=== PATIENT | female | born 1990 | race Caucasian/White ===

== ENCOUNTER 2022-06-29 08:00 | Outpatient (CLI) | payer OTHER | END 2022-06-29 23:52 | disposition home or self-care (01) | LOC: LAB.R 08:00 | PROVIDERS: ATTEND Obstetrics & Gynecology | DX: Z36.85 Encounter for antenatal screening for Streptococcus B (principal) | CPT/HCPCS: 87797 ==

== ENCOUNTER 2022-07-08 16:55 | Outpatient (CLI) | payer OTHER ==
--- NOTE | 2022-07-10 10:52 | Ultrasound Report ---
PROCEDURE: OB F/U or Repeat INDICATIONS: UTERINE SIZE DATE DISCREPANCY OUTSIDE/PRIOR DATING DATA: Last menstrual period (LMP): 10/19/2021. LMP-based estimated date of delivery ([facility]LA): 07/26/2022. First dating scan (date and location): 07/08/2022. Estimated date of delivery ([facility]LA) from first dating scan: 07/26/2010 22. The below data below was generated using the working NYLA of 07/26/2022 TECHNIQUE: Real-time scanning was performed of the fetus, with image documentation and biometric measurements. Endovaginal scanning: Not performed. COMPARISON: None. FINDINGS: General: A single living intrauterine gestation is present. Presentation: Vertex Placenta: Placental position is anterior, without previa. Amniotic fluid index: 18.2 cm; largest pocket 6.5 cm. heart rate: 137 beats per minute. Maternal cervical canal: 3.1 to cm long; normal length is 2.5 cm or more. biometrics: Biparietal diameter: 37 weeks 2 days Head circumference: 36 weeks 1 day Abdominal circumference: 34 weeks 1 day Femur length: 36 weeks 5 days Estimated gestational age from clinical datin weeks 1 day. Composite gestational age from present scan: 35 weeks 1 day Measurement variability in biometric dating: +/- 10 days from 12-20 weeks gestation, +/- 2 weeks from 20-30 weeks gestation, +/- 3 weeks at 30 weeks gestation or more. IMPRESSION: 1. A single living IUP is present. Based on the current ultrasound, the estimated gestational age is 35 weeks 1 day, which is concordant with clinical dating. 2. ARI 18.2 cm. Reviewed by: Hieu Velásquez MD on 07/10/2022 10:51 AM PST Approved by: Hieu Velásquez MD on 07/10/2022 10:51 AM PST Station ID: [id number]
== END 2022-07-08 16:56 | disposition home or self-care (01) ==
LOC: DI 16:55
PROVIDERS: ATTEND Obstetrics & Gynecology
DX: O26.843 Uterine size-date discrepancy, third trimester (principal); Z3A.35 35 weeks gestation of pregnancy

== ENCOUNTER 2022-07-14 16:41 | Inpatient (IN) | payer OTHER ==
[2022-07-14] MEDS ORDERED: TRANEXAMIC ACID IN NACL 1,000 MG/100 ML BAG IV PRN (17:01)
[2022-07-14] MEDS ORDERED: METHYLERGONOVINE 0.2 MG/ML VIAL IM PRN (17:01)
[2022-07-14] MEDS ORDERED: fentaNYL 100 MCG/2 ML VIAL IVP PRN (17:01)
[2022-07-14] MEDS ORDERED: SODIUM CHLORIDE FLUSH 0.9% 10 ML SYRINGE IVP PRN (17:01)
[2022-07-14] MEDS ORDERED: miSOPROStoL 200 MCG TABLET PR PRN (17:01)
[2022-07-14] MEDS ORDERED: OXYTOCIN 10 UNIT/ML VIAL IM PRN (17:01)
[2022-07-14] MEDS ORDERED: miSOPROStoL 200 MCG TABLET BC PRN (17:01)
[2022-07-14] MEDS ORDERED: lidocaine 1% 20 ML MDV ID PRN (17:01)
[2022-07-14] MEDS ORDERED: TERBUTALINE 1 MG/ML VIAL SUBQ PRN (17:01)
[2022-07-14] MEDS ORDERED: CARBOPROST TROMETHAMINE 250 MCG/ML AMP IM PRN (17:01)
--- NOTE | 2022-07-14 18:30 | PROCEDURE REPORT ---
- HPI Diagnosis/Indication for NST: Intrauterine growth restriction Current EDU 07/26/22 Gestation 38 Weeks and 2 Days 1 Para 0 Vital Signs Temperature 98 F 07/14/22 16:55 Heart Rate 86 07/14/22 16:55 Respiratory Rate 18 07/14/22 16:55 Blood Pressure 125/79 07/14/22 16:55 Temperature 98 F 07/14/22 16:55 Heart Rate 86 07/14/22 16:55 Respiratory Rate 18 07/14/22 16:55 Blood Pressure 125/79 07/14/22 16:55 O2 Saturation If not protocol: Oxygen Flow, liters/minute - NST Procedure NST Procedure Start Date 07/14/22 Start Time 16:20 Vibroacoustic Stimulation Used No Patient States Movement Yes EFM: 130s, moderate variability, positive accelerations, occasional variable decelerations Cable: contractions q4m NST reactive - Results and Plan Plan: 32yo at 38.2w with new diagnosis of IUGR today, sent for NST - NST reactive, occasional variables - OB US today <1%, recommended IOL. After lengthy discussion with patient, , and family she is accepting of process for IOL for IUGR now. - See H&P from today
--- NOTE | 2022-07-14 18:34 | HISTORY & PHYSICAL EXAMINATION ---
Admit History - Visit Reason Visit Reason: Other (IOL for IUGR) - : 1 Parity: 0 Care: positive: [facility] Risk/History: positive: Labor induction, Labor augmentation, High risk Smoking Status: Never smoker - Mother's Labs Mother's Blood Type: positive: B Mother's RH: positive: Positive GBS: positive: Group B Step Negative (CFDNA negative) Rubella Status: positive: Immune - Other Maternal History Other Maternal History: Med: Denies Surg: Breast biopsy 2016 Fam: Mother breast cancer, Father hypertension Social: , currently deployed, denies PERCY Meds/Allgy - Allergies Allergies/Adverse Reactions: Allergies Allergy/AdvReac Type Severity Reaction Status Date / Time No Known Drug Allergies Allergy Verified 07/14/22 18:34 Review of Systems - All Other Systems All Other Systems: reports: Reviewed and negative Physical - Abdominal Exam Vital Signs: Temp Pulse Resp BP Pulse Ox O2 Flow Rate 98 F 86 18 125/79 07/14/22 16:55 07/14/22 16:55 07/14/22 16:55 07/14/22 16:55 Contraction Frequency (min/apart): 4 Contraction Intensity: positive: Mild Uterine Resting Tone: positive: Soft - Monitoring Heart Rate Baseline: 130 Strip Review: positive: Category I - Presentation Presentation: positive: Vertex - Vaginal Exam Membranes: positive: Membranes intact (2210g EFW, cephalic, placenta anterior) Dilation (in cm): 0 Effacement (%): 50 Station: positive: -3 Cervical Position: positive: Midposition - Speculum Exam Speculum Exam Performed: positive: No Plan for Labor - Plan For Labor I expect patient to be DC'd or transferred within 96 hours.: Yes Plan for Labor: 32yo at 38.2w by LMP consistent with 9w US admitted for IOL for IUGR confirmed today. - Repeat US performed today as a follow up for dopplers from verbal report of about 3% EFW on 07/08 US. Today US shows EFW 2213g or 0.6%, abdominal circumference <0,5%, asymmetric growth restriction. Elevated S/D on cord doppler US. She was brought to the office from US to discuss IOL. She was then brought to [facility] for NST and continued discussion via telephone with her and mother in law. currently deployed. All questions answered and informed consent obtained for IOL. - uncomplicated. Weight gain 50lbs. - CBC, CMP, T&S, PCR, CMV. - Admit - Plan for misoprostol 50mcg q4, then Pitocin - Cat 1 tracing now, continue to monitor - Notify pediatrics, consult at time of delivery - Send placenta, call lab in am to order toxoplasmosis labs
[2022-07-14 19:26] LABS: CREATININE,URINE 14.6 mg/dL
[2022-07-14 19:34] LABS: TOTAL PROTEIN,URINE TIMED < 6 mg/dL
[2022-07-14 20:22] LABS: BASOPHILS % (AUTO) 0.3 %; EOSINOPHILS # (AUTO) 0.2 10^3/uL (0.0-0.7); EOSINOPHILS % (AUTO) 1.4 %; HCT - HEMATOCRIT 38.6 % (37.0-47.0); HGB - HEMOGLOBIN 12.8 g/dL (12.0-16.0); MEAN CORPUSCULAR HEMOGLOBIN 29.2 pg (27.0-31.0); MEAN CORPUSCULAR HGB CONC 33.2 g/dL (32.0-36.0); MEAN CORPUSCULAR VOLUME 87.9 fL (81.0-99.0); MEAN PLATELET VOLUME 11.6 fL (7.9-10.8); MONOCYTES # (AUTO) 0.5 10^3/uL (0.0-1.0); MONOCYTES % (AUTO) 4.4 %; NEUTROPHILS # (AUTO) 7.7 10^3/uL (1.5-6.6); NEUTROPHILS % (AUTO) 74.1 %; PLT - PLATELET COUNT 188 10^3/uL (130-450); RED BLOOD COUNT 4.39 10^6/uL (4.20-5.40); RED CELL DISTRIBUTION WIDTH 12.5 % (12.0-15.0); WHITE BLOOD COUNT 10.5 x10^3/uL (4.8-10.8)
[2022-07-14 20:39] LABS: ALBUMIN 3.4 g/dL (3.2-5.5); ALBUMIN/GLOBULIN RATIO 0.8 (1.0-2.2); BILIRUBIN,TOTAL 0.5 mg/dL (0.2-1.0); CALCIUM 9.6 mg/dL (8.5-10.3); CREATININE 0.5 mg/dL (0.4-1.0); POTASSIUM 3.6 mmol/L (3.5-5.0); TOTAL PROTEIN 7.7 g/dL (6.7-8.2)
[2022-07-14] MEDS: PRENATAL VITAMIN TABLET PO SCH (21:49)
[2022-07-14] MEDS: miSOPROStoL 100 MCG TABLET BC SCH (21:58)
[2022-07-14] MEDS ORDERED: CALCIUM CARBONATE CHEW 500 MG TABLET PO SCH (23:01)
[2022-07-15] MEDS: miSOPROStoL 100 MCG TABLET BC SCH ×2 (02:29→06:38)
[2022-07-15] MEDS: CALCIUM CARBONATE CHEW 500 MG TABLET PO PRN (07:30)
[2022-07-15] MEDS: PRENATAL VITAMIN TABLET PO SCH (08:59)
--- NOTE | 2022-07-15 09:03 | PROVIDER PROGRESS NOTE ---
Labor Progress Note - Uterine Monitoring Uterine Monitoring Mode: positive: External toco Contraction Frequency (min/apart): 4 Contraction Intensity: positive: Mild Uterine Resting Tone: positive: Soft - Monitoring Monitor Mode: positive: External ultrasound Heart Rate Baseline: 130 Heart Rate Variability: positive: Moderate (6-25 bmp) Accelerations: positive: Present, 15x15 Decelerations: positive: Variable Strip Review: positive: Category I - Vaginal Exam Dilation (in cm): 0 Effacement (%): 50 Station: -3 Cervical Position: Midposition - Labor Progress Note Labor Progress Note/Additional Text: 32yo at 38.3w by LMP consistent with 9w US admitted for IOL for IUGR <1% - CBC, CMP PCR normal - Follow up CMV, toxoplasmosis - Received misoprostol x3. Plan for fourth dose ~1030. Discussed continued misoprostol, cervical catheter and Pitocin for continued IOL - Pediatrics at delivery - Send placenta for pathology - Cat 1, continue to monitor
--- NOTE | 2022-07-15 11:03 | PROVIDER PROGRESS NOTE ---
Labor Progress Note - Uterine Monitoring Contraction Frequency (min/apart): 2 Uterine Resting Tone: positive: Soft - Monitoring Monitor Mode: positive: External ultrasound Heart Rate Variability: positive: Moderate (6-25 bmp) Accelerations: positive: Present, 15x15 Decelerations: positive: None (reassuring heart rate tracing. Reviewed patient's ultrasounds and discussed with Dr. Jacobs. growth restriction.)
--- NOTE | 2022-07-15 14:53 | PROVIDER PROGRESS NOTE ---
Labor Progress Note - Uterine Monitoring Uterine Monitoring Mode: positive: External toco Contraction Frequency (min/apart): 2-3 Contraction Intensity: positive: Mild to moderate Uterine Resting Tone: positive: Soft - Monitoring Monitor Mode: positive: External ultrasound Heart Rate Variability: positive: Moderate (6-25 bmp) Accelerations: positive: Present, 15x15 ( wellbeing reassuring. Discussed cervical ripening balloon. Patient declines at this time. She is starting to feel more contractions.)
--- NOTE | 2022-07-15 18:08 | PROVIDER PROGRESS NOTE ---
Labor Progress Note - Uterine Monitoring Uterine Monitoring Mode: positive: External toco Contraction Frequency (min/apart): 3 Contraction Intensity: positive: Mild Uterine Resting Tone: positive: Soft - Monitoring Monitor Mode: positive: External ultrasound Heart Rate Variability: positive: Moderate (6-25 bmp) Accelerations: positive: Present, 15x15 Decelerations: positive: None - Vaginal Exam Dilation (in cm): 0 - Labor Progress Note Labor Progress Note/Additional Text: cervical ripening balloon placed 60mL/60mL discussed starting pitocin when contractions space out
[2022-07-15] MEDS: SODIUM CHLORIDE FLUSH 0.9% 10 ML SYRINGE IVP SCH ×2 (18:24→21:38)
--- NOTE | 2022-07-15 22:43 | PROVIDER PROGRESS NOTE ---
Labor Progress Note - Uterine Monitoring Contraction Frequency (min/apart): 8 - Monitoring Monitor Mode: positive: External ultrasound Heart Rate Variability: positive: Moderate (6-25 bmp) Accelerations: positive: Present, 15x15 Decelerations: positive: None - Labor Progress Note Labor Progress Note/Additional Text: Discussed plan of care with education instructor road machine runner Dr. Mahmood. Pediatrics is okay to be present at delivery and feels comfortable managing the baby. Advised patient of possibility of transfer because of growth restriction and advised that this may result in a separation from baby but that if baby needed to be transferred we would try to get mom to baby as soon as possible. Patient states understanding and that she had a long discussion with Dr. Jacobs yesterday regarding growth restriction and the presence of pediatrics at delivery. wellbeing has been reassuring. Cervical ripening balloon is in place. Will start pitocin.
[2022-07-15] MEDS ORDERED: OXYTOCIN/SODIUM CHLORIDE 500 ML IV SCH (23:00)
[2022-07-15] MEDS: LACTATED RINGERS 1,000 ML IV SCH (23:39)
[2022-07-16] MEDS: LACTATED RINGERS 1,000 ML IV SCH ×3 (07:24→21:46)
--- NOTE | 2022-07-16 08:50 | PROVIDER PROGRESS NOTE ---
Labor Progress Note - Uterine Monitoring Uterine Monitoring Mode: positive: External toco Contraction Frequency (min/apart): 5 Contraction Intensity: positive: Mild Uterine Resting Tone: positive: Soft - Monitoring Monitor Mode: positive: External ultrasound Heart Rate Variability: positive: Moderate (6-25 bmp) Accelerations: positive: Present, 15x15 Decelerations: positive: None Strip Review: positive: Category I - Labor Progress Note Labor Progress Note/Additional Text: Patient declined cervical exam this morning. Cervical ripening balloon fell out earlier this morning. Pitocin @ 4 Patient comfortable wellbeing is reassuring.
--- NOTE | 2022-07-16 10:54 | PROVIDER PROGRESS NOTE ---
Labor Progress Note - Uterine Monitoring Uterine Monitoring Mode: positive: External toco Contraction Frequency (min/apart): 3-4 Contraction Intensity: positive: Mild - Monitoring Monitor Mode: positive: External ultrasound Heart Rate Variability: positive: Moderate (6-25 bmp) Accelerations: positive: Present, 15x15 Decelerations: positive: None - Vaginal Exam Effacement (%): 60 Station: 1 Cervical Position: Midposition - Labor Progress Note Labor Progress Note/Additional Text: cervical ripening balloon placed 60mL/40mL on pitocin wellbeing is reassuring Patient is doing well
[2022-07-16] MEDS: PRENATAL VITAMIN TABLET PO SCH ×2 (11:08→11:14)
[2022-07-16] MEDS: CALCIUM CARBONATE CHEW 500 MG TABLET PO PRN ×3 (11:09→18:37)
--- NOTE | 2022-07-16 15:43 | PROVIDER PROGRESS NOTE ---
Labor Progress Note - Uterine Monitoring Uterine Monitoring Mode: positive: External toco Contraction Frequency (min/apart): every 2 minutes Contraction Intensity: positive: Moderate - Monitoring Monitor Mode: positive: External ultrasound Heart Rate Variability: positive: Moderate (6-25 bmp) Accelerations: positive: Present, 15x15 Strip Review: positive: Category I - Labor Progress Note Labor Progress Note/Additional Text: Cervical dilation balloon in place Pitocin at 10 Patient getting more uncomfortable with contractions Discussed pain management options wellbeing reassuring
--- NOTE | 2022-07-16 18:04 | PROVIDER PROGRESS NOTE ---
Labor Progress Note - Uterine Monitoring Uterine Monitoring Mode: positive: External toco Contraction Frequency (min/apart): 2-3 Contraction Intensity: positive: Moderate Uterine Resting Tone: positive: Soft - Monitoring Monitor Mode: positive: External ultrasound Heart Rate Variability: positive: Moderate (6-25 bmp) Accelerations: positive: Present, 15x15 Decelerations: positive: None Strip Review: positive: Category I - Vaginal Exam Dilation (in cm): 4-5 Station: -2 Cervical Position: Midposition - Labor Progress Note Labor Progress Note/Additional Text: Cervical balloon out AROM with clear fluid wellbeing is reassuring
[2022-07-16] MEDS ORDERED: ONDANSETRON 4 MG/2 ML VIAL IVP PRN (19:06)
--- NOTE | 2022-07-17 02:02 | PROVIDER PROGRESS NOTE ---
Labor Progress Note - Uterine Monitoring Uterine Monitoring Mode: positive: External toco Contraction Frequency (min/apart): 2-3 Contraction Intensity: positive: Strong - Monitoring Monitor Mode: positive: External ultrasound Heart Rate Variability: positive: Moderate (6-25 bmp) Accelerations: positive: Present, 15x15 Decelerations: positive: None Strip Review: positive: Category I - Labor Progress Note Labor Progress Note/Additional Text: Pt with increased pain with contractions. In rocking chair. wellbeing reassuring.
--- NOTE | 2022-07-17 02:47 | PROVIDER PROGRESS NOTE ---
Labor Progress Note - Uterine Monitoring Uterine Monitoring Mode: positive: External toco Contraction Intensity: positive: Strong Uterine Resting Tone: positive: Soft - Monitoring Heart Rate Variability: positive: Moderate (6-25 bmp) Accelerations: positive: Present, 15x15 Decelerations: positive: None - Vaginal Exam Dilation (in cm): 8-9 Effacement (%): 90 Station: 1 - Labor Progress Note Labor Progress Note/Additional Text: wellbeing reassuring Pitocin at 10
[2022-07-17] MEDS: OXYTOCIN/SODIUM CHLORIDE 500 ML IV PRN ×2 (06:34→07:07)
--- NOTE | 2022-07-17 07:04 | DELIVERY NOTE ---
Delivery Note - Labor Labor: positive: Spontaneous, Induced by ARM, Induced by oxytocin, Other (induced with cytotec) - Infant Delivery Method Delivery Method: positive: Spontaneous vaginal delivery - Cervical Ripening Method Cervical Ripening Method: positive: Balloon device, Misoprostil - Presentation Presentation: positive: Vertex - Nuchal Cord Nuchal Cord: positive: None - Anesthetic Anesthetic Type: Anesthetic: positive: Lidocaine - 0.5% plain Volume: positive: 1cc - Amniotic Fluid Description Amniotic Fluid Description: positive: Clear - Episiotomy Type Episiotomy Type: positive: None - Laceration Laceration: positive: None (pt had very small skid prema that needed a single [id number] suture of 4-0 vicryl) - Suture Suture Type: positive: Vicryl Suture Size: positive: 4-0 - Delivery Outcome Delivery Outcome: positive: Livebirth - [place]: positive: Placed in direct skin contact with mother, Stimulated, Warmed, [place] used [place] sex: positive: Male - Cord Cord: positive: 3 vessels - Placenta Placenta: positive: Intact, Spontaneous - Estimated Blood Loss Estimated Blood Loss (in cc): 100 - Post Delivery Events Post Delivery Events: positive: No post delivery events
[2022-07-17] MEDS ORDERED: SIMETHICONE CHEW 80 MG TABLET PO PRN (07:06)
[2022-07-17] MEDS ORDERED: LACTATED RINGERS 1,000 ML IV SCH (08:00)
[2022-07-17] MEDS: IBUPROFEN 600 MG TABLET PO SCH ×2 (09:11→18:55)
[2022-07-17] MEDS: ACETAMINOPHEN 500 MG TABLET PO SCH ×2 (09:11→18:55)
[2022-07-17] MEDS: DOCUSATE SODIUM 100 MG CAPSULE PO PRN ×2 (09:11→18:55)
[2022-07-17] MEDS: miSOPROStoL 100 MCG TABLET BC SCH ×2 (11:05→11:06)
[2022-07-18] MEDS: IBUPROFEN 600 MG TABLET PO SCH ×3 (01:00→14:58)
[2022-07-18] MEDS: ACETAMINOPHEN 500 MG TABLET PO SCH ×2 (02:58→14:58)
[2022-07-18] MEDS: DOCUSATE SODIUM 100 MG CAPSULE PO PRN ×2 (09:36→21:09)
--- NOTE | 2022-07-18 10:16 | PROVIDER PROGRESS NOTE ---
Subjective - Prog Note Date Prog Note Date: 07/18/22 Prog Note Time: 10:13 - Subjective Subjective: Patient is PPD#1 s/p Patient is doing well this morning. Ambulating, tolerating regular diet, spontaneously voiding. Objective - Vital Signs/Intake & Output Reviewed Vital Signs: Yes Vital Signs: Vital Signs x48h Temp Pulse Resp BP Pulse Ox 07/18/22 09:00 98.1 F 78 16 109/75 100 07/18/22 04:50 98.4 F 72 18 115/77 99 Intake & Output: Intake & Output 07/15/22 07/16/22 07/17/22 07/18/22 23:59 23:59 23:59 23:59 Intake Total 400 2785.134 2472.700 Output Total 400 1350 750 Balance 0 6329.449 8780.700 - Objective General Appearance: positive: No acute distress Eyes Bilateral: positive: Normal inspection, PERRL Respiratory: positive: Chest non-tender, Breath sounds nml Cardiovascular: positive: Regular rate & rhythm Abdomen: positive: Other (non-tender, firm fundus below umbilicus) Skin: positive: Color nml Extremities: positive: Non-tender (1+ peripheral edema) - Lab Results Fish Bones: 07/14/22 19:41 07/14/22 19:41 Assessment/Plan - Problem List (1) Vaginal delivery Impression: PPD#1 Routine care Rh+ Baby at bedside Reviewed signs and symptoms of depression
[2022-07-18] MEDS: PRENATAL VITAMIN TABLET PO SCH (14:58)
--- NOTE | 2022-07-19 09:23 | PROVIDER PROGRESS NOTE ---
Subjective - Prog Note Date Prog Note Date: 07/19/22 Prog Note Time: 09:21 - Subjective Subjective: Patient is PPD#2 s/p She is doing well this morning, however tearful, didn't sleep well last night. Lochia<menses Spontaneously voiding Objective - Vital Signs/Intake & Output Reviewed Vital Signs: Yes Intake & Output: Intake & Output 07/16/22 07/17/22 07/18/22 07/19/22 23:59 23:59 23:59 23:59 Intake Total 2785.134 2472.700 Output Total 1350 750 Balance 3011.593 5794.700 - Objective General Appearance: positive: No acute distress Eyes Bilateral: positive: Normal inspection, PERRL Respiratory: positive: No respiratory distress, Breath sounds nml. negative: Wheezes, Rales, Rhonchi Cardiovascular: positive: Regular rate & rhythm Abdomen: positive: Non-tender (firm fundus below umbilicus) Skin: positive: Color nml Extremities: positive: Non-tender, Pedal edema (2+) - Lab Results Fish Bones: 07/14/22 19:41 07/14/22 19:41 Assessment/Plan - Problem List (1) Vaginal delivery Impression: PPD#2 uncomplicated course counseled on signs and symptoms of depression recommended 1 week follow-up with Dr. Jacobs
--- NOTE | 2022-07-19 09:27 | DISCHARGE SUMMARY ---
"Discharge Summary Admit Date: 07/14/22 Discharge Date: 07/19/22 Discharging Provider: Keyana Primary Care Provider: Reynaldo Code Status: Attempt Resuscitation Condition at Discharge: Good Discharge Disposition: 01 Home, Self Care - DIAGNOSES Admission Diagnoses: Growth Restriction - HPI History of Present Illness: 32yo at 38.2w by LMP consistent with 9w US admitted for IOL for IUGR. -US shows EFW 2213g or 0.6%, abdominal circumference <0,5%, asymmetric growth restriction. Elevated S/D on cord doppler US. She was brought to the office from US to discuss IOL. She was then brought to [facility] for NST and continued discussion via telephone with her and mother in law. currently deployed. All questions answered and informed consent obtained for IOL. Induction methods included: cytotec, cervical ripening balloon, pitocin and AROM. Patient had an uncomplicated with baby boy . Patient had an uncomplicated course and was discharged to home. - CONSULTS | PROCEDURES Procedures: normal spontaneous vaginal delivery - ALLERGIES Allergies/Adverse Reactions: Allergies Allergy/AdvReac Type Severity Reaction Status Date / Time No Known Drug Allergies Allergy Verified 07/14/22 18:34 - PHYSICAL EXAM AT DISCHARGE General Appearance: positive: No acute distress, Alert Eyes Bilateral: positive: PERRL Respiratory: positive: No respiratory distress, Breath sounds nml Cardiovascular: positive: Regular rate & rhythm, No murmur, No gallop Abdomen: positive: Non-tender (firm fundus below umbilicus) Skin: positive: Color nml Extremities: positive: Non-tender, Pedal edema (2+) - LABS Result Diagrams: 07/14/22 19:41 07/14/22 19:41 - FOLLOW UP Follow Up: Follow up with Dr. Jacobs in 1 week"
[2022-07-19 12:07] VITALS: BP 124/76
--- NOTE | 2022-07-19 16:27 | Labor Flowsheet ---
Labor Flowsheet Datetime Report Generated by CPN: 07/19/2022 16:27 Datetime: 07/19/2022 11:58 VITAL SIGNS NBP Sys/Meghan/Mean (mmHg): 124 : 76 : 86 Pulse: 88 Datetime: 07/17/2022 07:16 Membranes Ruptured Date/Time: 07/16/2022 17:54 Datetime: 07/17/2022 07:15 Nurse Giving Report: Cecile Little RN Nurse Receiving Report: Pat August RN Datetime: 07/17/2022 07:00 Respirations: 18 SpO2 (%): 99 Datetime: 07/17/2022 06:37 Stage 2 Comments: fundal check- 1 below, firm, midline Datetime: 07/17/2022 06:34 MEDICATIONS Pitocin (milliunits): Increased to @ 999 Datetime: 07/17/2022 06:27 Stage of : Recovery Datetime: 07/17/2022 06:26 ASSESSMENT A Monitor Mode: External US FHR Baseline Rate : 120 Variability: Moderate 6-25 bpm Accelerations: None Decelerations: None Category: Category I Datetime: 07/17/2022 06:24 LaborFlag: Labor Datetime: 07/17/2022 06:13 STAGE 2 Pushing: Coached on Pushing; Urge to Push Pushing Position: Pushing with Contractions; Pushing Lithotomy Pushing Progress: Descent with Pushing; Pushing Effectively with Contractions Datetime: 07/17/2022 05:14 Temperature (C): 37.0 Datetime: 07/17/2022 04:52 Communication Comments: Daniel Ruddell pediatric anesthesiologist at the bedside Datetime: 07/17/2022 04:29 UTERINE ACTIVITY Monitor Mode: External Frequency (min): 2-4 Quality: Strong Duration (sec): 60-90 Pattern: Normal: <= 5 Contractions in 10 Minutes Resting Tone (Palpate): Relaxed Comments: unable to determine due to maternal movement Patient Position/Activity: Left Lateral Datetime: 07/17/2022 04:11 VAGINAL EXAM Dilatation (cm): 10.0 Effacement (%): 100 Station: 2 Exam by: Dr. Ridley Datetime: 07/17/2022 04:08 COMMUNICATION Communication: Provider at Bedside Datetime: 07/17/2022 04:06 Notification Reason: Patient Request Datetime: 07/17/2022 04:01 Monitor Interventions for UA: Dearing Adjusted Contraction Comments: TOCO replaced Monitor Interventions for FHR: Ultrasound Adjusted Datetime: 07/17/2022 03:15 I/O Interventions: Up to BR Patient Care Comments: up to bedside commode. 100ml clear yellow urine Datetime: 07/17/2022 03:00 FHR Baseline Changes: No Baseline Change Datetime: 07/17/2022 01:30 Pitocin Checklist: At Least 1 Acceleration of 15 bpm x 15 Seconds in 30 Minutes or Adequate Variabi lity; No More than 5 Uterine Contractions in 10 Minutes for any 20 Minute Interval; Uterus Palpates S oft between Contractions PAIN Pain Scale: 10 Pain Presence: Intermittent Pain Type: Contraction; Pressure Pain Location: Abdomen; Back Pain Goal: Plans unmedicated labor per couple at this time Pain Relief Measures: Comfort Measures Pain Coping: Breathing Through Contractions; Declines Medication or Epidural; Other (Annotations: Soft moaning) Datetime: 07/17/2022 00:32 Provider Notified (Name): Dr Baltes Datetime: 07/16/2022 23:40 Comfort Measures: Hot/Cold Pack Datetime: 07/16/2022 22:00 Temperature Route: Oral Datetime: 07/16/2022 20:37 Vaginal Bleeding: Normal Show Datetime: 07/16/2022 19:19 Antiemetics/Antacids: Zofran (mg) @ 8 Datetime: 07/16/2022 18:42 Pain Assessment Comments: nitrous oxide initiated Datetime: 07/16/2022 17:54 Membrane Status: Ruptured Membranes Rupture Method: Artificial Amniotic Fluid Color: Clear Amniotic Fluid Amount: Moderate Amniotic Fluid Odor: None Datetime: 07/16/2022 17:40 Cervix, Consistency: Soft Cervix, Position: Midposition Datetime: 07/16/2022 15:44 Actions for Decelerations: Provider Notified Datetime: 07/16/2022 15:34 Provider Reviewed Strip: Yes Strip Reviewed by: Dr. Baltes Datetime: 07/16/2022 12:40 Vital Sign Comments: Drinking PO fluids Datetime: 07/16/2022 04:52 Vaginal Exam Comments: Barker bulb dislodged Datetime: 07/16/2022 02:45 Intensity IUP (mmHg): 70-80 Datetime: 07/15/2022 19:15 PATIENT CARE Oxygen Method: Room Air Datetime: 07/15/2022 18:00 Cervical Ripening Agents: Barker Balloon; Cytotec @ Medication Comments: 60/60 Datetime: 07/14/2022 20:45 Hygiene: Shower
== END 2022-07-19 16:25 | disposition home or self-care (01) | DRG 807 ==
LOC: WFO 16:41 → FBP 16:42 → WFO 17:00 → FBP 17:01 → UNDOADMIN 17:01 → FBP 20:44
PROVIDERS: ADMIT Obstetrics & Gynecology; ATTEND Obstetrics & Gynecology Obstetrics
PROC: 3E0DXGC Introduction of Other Therapeutic Substance into Mouth and Pharynx, External Approach (ICD-10-PCS; 2022-07-14)
PROC: 0U7C7ZZ Dilation of Cervix, Via Natural or Artificial Opening (ICD-10-PCS; 2022-07-15)
PROC: 3E033VJ Introduction of Other Hormone into Peripheral Vein, Percutaneous Approach (ICD-10-PCS; 2022-07-15)
PROC: 10907ZC Drainage of Amniotic Fluid, Therapeutic from Products of Conception, Via Natural or Artificial Opening (ICD-10-PCS; 2022-07-16)
PROC: 10E0XZZ Delivery of Products of Conception, External Approach (ICD-10-PCS; principal; 2022-07-17)
DX: O36.5930 Maternal care for other known or suspected poor fetal growth, third trimester, not applicable or unspecified (principal); Z37.0 Single live birth; Z3A.38 38 weeks gestation of pregnancy
CPT/HCPCS: 59025; 80053; 82570; 84156; 85025; 86644; 86645; 86747; 86777; 86778; 86850; 86900; 86901; A9270; J7120; 81599; 87497

== ENCOUNTER 2024-01-25 14:18 | Outpatient (CLI) | payer OTHER ==
[2024-01-25 16:48] LABS: BILIRUBIN,URINE NEGATIVE (NEGATIVE); GLUCOSE, URINE (UA) NEGATIVE (NEGATIVE); KETONES,URINE (UA) NEGATIVE (NEGATIVE); LEUKOCYTE ESTERASE, URINE NEGATIVE (NEGATIVE); NITRITE,URINE NEGATIVE (NEGATIVE); OCCULT BLOOD,URINE LARGE (NEGATIVE); PH,URINE 6.5 PH (5.0-7.5); PROTEIN,URINE NEGATIVE (NEGATIVE); UROBILINOGEN,URINE 0.2 (NORMAL) E.U./dL (NORMAL)
[2024-01-25 16:51] LABS: CLARITY,URINE CLEAR (CLEAR)
[2024-01-25 17:00] LABS: BACTERIA,URINE Moderate /HPF (None Seen); SQUAMOUS EPITHELIAL CELL,UR FEW Squamous (<= Few); WBC,URINE 0-3 /HPF (0-5)
== END 2024-01-25 14:19 | disposition home or self-care (01) ==
LOC: LAB 14:18
PROVIDERS: ATTEND Obstetrics & Gynecology
DX: Z34.90 Encounter for supervision of normal pregnancy, unspecified, unspecified trimester (principal)
CPT/HCPCS: 36415; 81001; 84702; 87086

== ENCOUNTER 2024-02-02 11:56 | Outpatient (CLI) | payer OTHER | END 2024-02-02 11:57 | disposition home or self-care (01) | LOC: LAB 11:56 | PROVIDERS: ATTEND Obstetrics & Gynecology | DX: Z34.90 Encounter for supervision of normal pregnancy, unspecified, unspecified trimester (principal) | CPT/HCPCS: 36415; 84702 ==

== ENCOUNTER 2024-02-17 10:11 | Outpatient (CLI) | payer OTHER | END 2024-02-17 10:12 | disposition home or self-care (01) | LOC: LAB 10:11 | PROVIDERS: ATTEND Obstetrics & Gynecology | DX: Z32.01 Encounter for pregnancy test, result positive (principal) | CPT/HCPCS: 36415; 84702 ==

== ENCOUNTER 2024-02-25 14:58 | Outpatient (CLI) | payer OTHER | END 2024-02-25 14:59 | disposition home or self-care (01) | LOC: LAB 14:58 | PROVIDERS: ATTEND Obstetrics & Gynecology | DX: Z32.01 Encounter for pregnancy test, result positive (principal) | CPT/HCPCS: 36415; 84702 ==

== ENCOUNTER 2024-03-08 12:56 | Outpatient (CLI) | payer OTHER | END 2024-03-08 12:57 | disposition home or self-care (01) | LOC: LAB 12:56 | PROVIDERS: ATTEND Obstetrics & Gynecology | DX: O02.1 Missed abortion (principal) | CPT/HCPCS: 36415; 84702 ==

== ENCOUNTER 2024-03-24 12:02 | Outpatient (CLI) | payer OTHER | END 2024-03-24 12:03 | disposition home or self-care (01) | LOC: LAB 12:02 | PROVIDERS: ATTEND Obstetrics & Gynecology | DX: O02.1 Missed abortion (principal) | CPT/HCPCS: 36415; 84702 ==

== ENCOUNTER 2025-08-06 02:34 | Inpatient (IN) ==
[2025-08-06] MEDS ORDERED: OXYTOCIN 10 UNIT/ML VIAL IM PRN (02:45)
[2025-08-06] MEDS ORDERED: CARBOPROST TROMETHAMINE 250 MCG/ML VIAL IM PRN (02:45)
[2025-08-06] MEDS ORDERED: SODIUM CHLORIDE FLUSH 0.9% 10 ML SYRINGE IVP PRN (02:45)
[2025-08-06] MEDS ORDERED: hydrALAZINE INJ 20 MG/ML VIAL IVP PRN (02:45)
[2025-08-06] MEDS ORDERED: LACTATED RINGERS 1,000 ML IV PRN (02:45)
[2025-08-06] MEDS ORDERED: fentaNYL 100 MCG/2 ML VIAL IVP PRN (02:45)
[2025-08-06] MEDS ORDERED: TERBUTALINE 1 MG/ML VIAL SUBQ PRN (02:45)
[2025-08-06] MEDS ORDERED: LABETALOL 20 MG/4 ML SYRINGE IVP PRN ×3 (02:45)
[2025-08-06] MEDS ORDERED: METHYLERGONOVINE 0.2 MG/ML VIAL IM PRN (02:45)
[2025-08-06] MEDS ORDERED: OXYTOCIN/SODIUM CHLORIDE 500 ML IV PRN ×2 (02:45→06:56)
--- OUTSIDE RECORDS SUMMARY | 2025-08-06 02:54 | EXTERNAL MEDICAL SUMMARY RPT | Continuity of Care Document ---
Author Organization [facility] Address [address] [address] Phone Allergies and Intolerances date description facility reaction severity 2024-06-14 10:00 [id number]^No Known Drug Allergies^^No Known Drug Allergies^^allergy.id [facility] (no reaction) (no severity) 2025-04-12 10:00 [id number]^No Known Drug Allergies^^No Known Drug Allergies^^allergy.id [facility] (no reaction) (no severity) 2025-05-10 10:00 [id number]^No Known Drug Allergies^^No Known Drug Allergies^^allergy.id [facility] (no reaction) (no severity) 2025-06-08 10:00 [id number]^No Known Drug Allergies^^No Known Drug Allergies^^allergy.id [facility] (no reaction) (no severity) 2025-06-29 10:00 [id number]^No Known Drug Allergies^^No Known Drug Allergies^^allergy.id [facility] (no reaction) (no severity) 2025-07-06 10:00 [id number]^No Known Drug Allergies^^No Known Drug Allergies^^allergy.id [facility] (no reaction) (no severity) 2025-07-13 10:00 [id number]^No Known Drug Allergies^^No Known Drug Allergies^^allergy.id [facility] (no reaction) (no severity) 2025-07-20 10:00 [id number]^No Known Drug Allergies^^No Known Drug Allergies^^allergy.id [facility] (no reaction) (no severity) 2025-08-03 10:00 [id number]^No Known Drug Allergies^^No Known Drug Allergies^^allergy.id [facility] (no reaction) (no severity) Problems date description facility 2025-04-19 12:15 Uterine size-date discrepancy, unspecified [facility] 2025-04-19 12:17 Uterine size-date discrepancy, unspecified [facility] 2025-05-10 14:43 Uterine size-date discrepancy, unspecified trimester [facility] 2025-05-14 08:16 Other specified dise ases and conditions [facility]25-[facility]-14 08:17 Other specified dise ases and conditions complicating [facility] 2025-05-14 08:17 Periumbilical pain [facility] 2025-05-14 08:17 29 weeks [facility] 2025-05-18 11:29 Uterine size-date discrepancy, unspecified [facility] 2025-05-19 00:01 Uterine size-date discrepancy, unspecified trimester [facility] 2025-05-22 10:59 Abnormal ultrasonic finding on screening of mother [facility] 2025-05-23 09:31 Uterine size-date discrepancy, third trimester [facility] 2025-06-04 13:41 Abnormal ultrasonic finding on screening of mother [facility] 2025-06-04 13:42 Abnormal ultrasonic finding on screening of mother [facility] 2025-06-08 15:01 Abnormal ultrasonic finding on screening of mother [facility] 2025-06-08 15:08 Abnormal ultrasonic finding on screening of mother [facility] 2025-06-08 15:37 Abnormal ultrasonic finding on screening of mother [facility] 2025-06-08 16:53 Encounter for immunization [facility] 2025-06-09 00:01 Abnormal ultrasonic finding on screening of mother [facility] 2025-06-14 07:34 Uterine size-date discrepancy, [facility] 2025-06-14 07:34 Encounter for immunization [facility] 2025-06-29 15:17 Encounter for screeni ng for Streptococcus B [facility] 2025-06-29 15:18 Encounter for screeni ng for Streptococcus B [facility] 2025-06-29 16:11 Encounter for immunization [facility] 2025-06-29 16:11 Encounter for screeni ng for Streptococcus B [facility] 2025-06-30 00:04 [facility] 2025-06-30 00:04 Encounter for screeni ng for Streptococcus B [facility] 2025-07-05 14:43 Encounter for immunization [facility] 2025-07-05 14:43 Encounter for superv ision of normal , unspecified, third trimester [facility] 2025-07-05 14:43 Encounter for screeni ng for Streptococcus B [facility] 2025-07-09 10:31 Encounter for superv ision of other normal , third trimester [facility] 2025-07-09 10:31 37 weeks gestation of [facility] 2025-07-20 13:51 Supervision of pregn andrzej with other poor reproductive or obstetric history, third trimester [facility] 2025-07-26 14:22 Encounter for superv ision of normal , unspecified, third trimester [facility] 2025-08-02 08:08 Encounter for superv ision of other normal , third trimester [facility] 2025-08-02 08:09 Encounter for superv ision of other normal , third trimester [facility] 2025-08-02 08:09 40 weeks gestation of [facility] 2025-08-03 16:20 Post-term [facility] lt Results/Labs test date facility value unit notes Result panel 1 GBSPCR,REFLEX IF PEN ALLERGIC 2025-06-29 15:15 [facility] NEGATIVE (missing) (missing) Social History date description facility
[2025-08-06 03:48] LABS: HCT - HEMATOCRIT 41.0 % (37.0-47.0); HGB - HEMOGLOBIN 13.3 g/dL (12.0-16.0); MEAN PLATELET VOLUME 10.9 fL (7.9-10.8); NRBC ABSOLUTE COUNT (AUTO) 0.00 x10^3/uL; NUCLEATED RED BLOOD CELLS AUTO 0.0 /100WBC; PLT - PLATELET COUNT 210 10^3/uL (130-450); RED CELL DISTRIBUTION WIDTH 13.3 % (12.0-15.0)
[2025-08-06 04:02] LABS: ALT ALANINE AMINOTRANSFERASE 15.0 IU/L (10-60); AST ASPARTATE AMINOTRANSFERASE 13.0 IU/L (10-42); BUN - BLOOD UREA NITROGEN 12.0 mg/dL (6-20); CARBON DIOXIDE - CO2 22.0 mmol/L (21-32); CREATININE 0.6 mg/dL (0.6-1.3); GFR - MDRD 115.0 (>89)
[2025-08-06] MEDS: TRANEXAMIC ACID IN NACL 1,000 MG/100 ML BAG IV PRN (06:38)
[2025-08-06] MEDS ORDERED: HYDROCORTISONE 1% CREAM 28 GM TUBE TOP PRN (06:56)
[2025-08-06] MEDS ORDERED: WITCH HAZEL/GLYCERIN 1 PAD TOP PRN (06:56)
[2025-08-06] MEDS ORDERED: SIMETHICONE CHEW 80 MG TABLET PO PRN (06:56)
--- NOTE | 2025-08-06 07:00 | HISTORY & PHYSICAL EXAMINATION ---
Admit History Smoking Status: Never smoker HPI Current : Vital Signs Temperature 98.2 F 08/06/25 06:31 Pulse Rate 102 H 08/06/25 06:45 Respiratory Rate 19 08/06/25 05:10 Blood Pressure 119/73 08/06/25 06:45 O2 Saturation 100 08/06/25 06:45 Meds/Allgy Home Medications Ambulatory Orders Medication Instructions Recorded Confirmed metoclopramide HCl 5 mg tablet 5 mg PO Q6H PRN nausea and 01/06/25 08/03/25 vomiting #90 tabs vitamins with calcium 1 tab PO QDAY #90 tabs 02/20/25 08/03/25 no.72-iron 27 mg-folic acid 1 mg tablet (M- Plus) Allergies Allergies Allergy/AdvReac Type Severity Reaction Status Date / Time No Known Drug Allergies Allergy Verified 08/03/25 15:17 PFSH Active Problems All Active Problems (Updated 08/03/25 @ 15:48 by Ольга Mills RN) Post-dates (Acute) Abnormal ultrasound (Acute) Uterine size date discrepancy (Acute) Vulvar irritation (Acute) Personal history of other complications of , childbirth and the puerperium (Acute) History of intrauterine growth restriction in prior , currently in second trimester (Acute) Normal in multigravida in second trimester (Acute) Encounter for other specified screening (Acute) Encounter for supervision of normal , unspecified, first trimester (Acute) Positive test (Acute) Medical History Medical History (Updated 08/03/25 @ 15:48 by Ольга Mills RN) Fracture of phalanx of right middle finger with delayed healing Surgical History Surgical History (Updated 01/04/25 @ 11:15 by Tracee Orellana MA) No pertinent past surgical history Family History Family History (Updated 12/07/24 @ 11:20 by Ольга Mills RN) Father High blood pressure Social History Social History (Updated 04/12/25 @ 13:50 by Tracee Orellana MA) Smoking Status: Never smoker Do you dip or chew tobacco?: No Do you vape?: No Patient requests smoking cessation consult: No Initiate information on smoking cessation: No Living arrangement: At home Living Condition: With spouse/s.o. 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 She reports contractions have increased in frequency and have significantly increased in intensity since that time. Upon arrival SVE 4/-1 and vertex with grossly ruptured membranes. She is found to contract every 2-3 minutes with soft resting tone. FHR baseline 115, moderate variability, no accels, intermittent variable decels. June has been a patient of [facility] for the duration of her which has remained uncomplicated. She will be admitted to [facility] for expectant management. She strongly desires a minimal intervention labor and delivery. She is supported by her partner Marcel. In the event of an emergency, ACCEPTS the administration of blood products OB hx: G1: 06/2022 ; Mauricio. IUGR IOL (miso, CRB, pitocin, AROM) 38+6, 2514g, 30 minute second stage, one small abrasion, single stitch repair. G2: 11/2023, SAB G3: Current FOB: Marcel PROBLEMS: -Left choroid plexus cyst -NIPT neg -F/u ultrasound @ 33wks remains 1cm Medical Hx: None significant. Surgical Hx: None Social Hx: Partner Marcel is currently living in [place]. She plans to relocate with him after it is safe to travel with the baby . Never smoker. No ETOH or IVDA. Family Hx: Father- hypertension, heart disease, aunt-breast cancer Allergies: NKA Medications: PNV LMP:10/19/2024 NYLA by LMP: 07/26/2025 U/S: 01/04/2025 @ 11+0, NYLA by us: 07/23/2025 consistent with dates Final NYLA: 07/26/2025 Pre- weight: 130 BMI: 25.3 Blood type:B+ Antibody screen: Negative CBC: PLT 222 HCT 38.3 HGB 12.3 Rubella: Immune VZV:Immune HBsAg Negative: HepC: NR RPR/AB-EIA: NR HIV: NR Flu: declines COVID: declines PAP: 03/12/2020 (per old transfer records) PAP @PP GC/CT: 01/04/2025 Negative HSV: denies Genetic screening: NIPT Negative AFP:declined FAS: left choroid plexus cyst - follow up ultrasound in the third trimester. Placenta: posterior Cord: 3VC ARI: 12.6-normal EFW: 390g, 67%ile F/u U/S @ 33wks - 1cm choroid plexus cyst stable 50gm GCT: 100 TDAP: 06/08/2025 Breast Pump: 06/08/2025 3rd trimester 11.5/ 35.7/ 193 3rd trimester RPR NR RSV: 06/29/2025 GBS: 06/29/2025 Negative Delivery plan: Unmedicated delivery, . Desires to be informed of her labor progress along the way. contraception Physical Exam: Normocephalic, atraumatic Heart RRR w/o M/G/R Lungs CTAB Abdomen gravid, soft, nontender. EFW 3700g FHR baseline 115, moderate variability, no accels, intermittent variable decels Contractions palpate strong every 2-3 minutes with soft resting tone SVE 4/75/-1 and vertex with grossly ruptured membranes, clear fluid.. Bilateral LE's trace edema Mood is stable. Assessment: 35yo @ 41.4wks gestation Postdates FHR Category II - overall reassuring GBS negative Plan: Admit to [facility] for expectant management. Encouraged ambulation and position changes. Continuous monitoring secondary to postdates and Category II FHR tracing upon admission. Jacuzzi PRN. Nitrous oxide PRN. Epidural per maternal request. Anticipate . Conclusion/Plan Lab Results 08/06/25 03:30 08/06/25 03:30
--- NOTE | 2025-08-06 07:10 | DELIVERY NOTE ---
Delivery Note Delivery Outcome Delivery Date: 08/06/25 Delivery Time: 05:43 Delivery Comments (Free Text/Narrative) Delivery Comments (Free Text/Narrative): Labor: This 35yo @ 41.4wks gestation by LMP presented to [facility] in active labor. Cervix was 4/75/-1 and vertex with grossly ruptured membranes and clear fluid (occurred at 0200 this morning). FHR demonstrated Category II pattern throughout labor but overall remained reassuring. Normal labor course. She progressed to c/c/0 at 0439 with spontaneous pushing. : Normal SVB of viable female infant on 08/06/2025 @ 0543. No nucal cord. The was placed on maternal abdomen, stimulated, dried, and placed skin to skin. 's were 8/9 at 1 and 5 min respectively. pitocin declined by patient. The umbilical cord was allowed to stop pulsating at which time it was doubly clamped by CNM and cut by FOB. Cord blood was obtained. 3VC. Fundal massage and gentle cord traction applied for active management of the third stage. Placenta delivered spontaneously and intact at 0602. QBL 300mL. Fourth stage: Uterine fundus firm and there is no excessive bleeding. The perineum, vagina, and cervix were inspected and found to have a 2nd degree perineal laceration which was repaired using a 3-[address]-1 needle, in standard fashion and under sterile conditions. There was noted to be a hematoma on the left vaginal sidewall, near introitus that resolved with pressure and monitoring. TXA administered via IV for management. Vaginal examination following repair was performed. Tissues well approximated. initiated. Both mother and baby were left in stable condition.
[2025-08-06] MEDS: IBUPROFEN 800 MG TABLET PO PRN (07:35)
[2025-08-06] MEDS: ACETAMINOPHEN 500 MG TABLET PO PRN (07:35)
[2025-08-06] MEDS: DOCUSATE SODIUM 100 MG CAPSULE PO SCH (08:06)
[2025-08-06] MEDS: LACTATED RINGERS 1,000 ML IV SCH (13:23)
[2025-08-06] MEDS: SODIUM CHLORIDE FLUSH 0.9% 10 ML SYRINGE IVP SCH (13:24)
[2025-08-07 06:29] VITALS: TEMP 98.6
[2025-08-07 09:40] VITALS: BP 115/61; O2SAT 97
--- NOTE | 2025-08-07 10:08 | Discharge Summary ---
Discharge Summary HOSPITAL COURSE Hospital Course: Date of Admission: 08/06/2025 Date of Discharge: 08/07/2025 Diagnosis on Admission: 1. 35yo @ 41.4wks gestation 2. Postdates 3. FHR Category II - overall reassuring 4. GBS negative Diagnosis on Discharge: 1. 35yo PPD#1 s/p TSVD viable female 2. 3. Normal recovery Brief History: She is a patient of [facility] who presented on 08/06/2025 in active labor. Cervix was 4/75/-1 and vertex with grossly ruptured membranes. She spontaneously progressed to deliver a viable female infant on 08/06/2025 @ 0543. Perineum was found to have a 2nd degree laceration which was repaired using a 3- [address]-1 needle in standard fashion and under sterile conditions. Apgars were 8/9 at 1 and 5 minutes respectively. QBL 300 mL. She has been doing well in her course. She is ambulating and tolerating a regular diet. She is urinating without difficulty and her lochia is normal. Her pain is well controlled with oral medications. She will be discharged home today on day #1 with instructions to continue taking her vitamin while and to continue taking Ibuprofen and Tylenol over the counter as needed for pain management. She intends to follow up with myself at [facility] in 1 week for routine visit or sooner if needed. She has been given precautions to call if she has any worsening fevers, chills, abdominal pain, increased vaginal bleeding or foul smelling vaginal lochia. Physical Exam: Normocephalic, atraumatic. Heart RRR w/o M/G/R, lungs CTAB, abdomen soft and nontender with fundus firm at U, perineum intact, light lochia rubra, bilateral LE's no edema. Mood is good. ALLERGIES Allergies Allergy/AdvReac Type Severity Reaction Status Date / Time No Known Drug Allergies Allergy Verified 08/03/25 15:17 MEDICATIONS Ambulatory Orders Medication Instructions Recorded Confirmed metoclopramide HCl 5 mg tablet 5 mg PO Q6H PRN nausea and 01/06/25 08/03/25 vomiting #90 tabs vitamins with calcium 1 tab PO QDAY #90 tabs 02/20/25 08/03/25 no.72-iron 27 mg-folic acid 1 mg tablet (M-Melissa Plus) PHYSICAL EXAM AT DISCHARGE Vital Signs: Vital Signs x48h Temp Pulse Resp BP Pulse Ox 08/07/25 09:39 98.6 F 92 16 115/61 97 08/07/25 06:28 98.6 F 85 17 103/64 96 LABS 08/06/25 03:30 08/06/25 03:30 Discharge Plan Discharge Patient Disposition: 01 Home, Self Care Prescriptions: Continued M-Melissa Plus 27 mg iron- 1 mg tablet 1 tab PO QDAY Qty: 90 3RF metoclopramide HCl 5 mg tablet 5 mg PO Q6H PRN (Reason: nausea and vomiting) Qty: 90 2RF Print Language: Khmer Patient Instructions: After a Vaginal , : Caring for Yourself Follow-up Care: Serenity Burks, MARCIO, [employer] [facility] [employer] [Primary Care Provider, Obstetrics/Gynecology]
--- NOTE | 2025-08-07 11:45 | Labor Flowsheet ---
Labor Flowsheet Datetime Report Generated by CPN: 08/07/2025 11:45 Datetime: 08/07/2025 11:40 VITAL SIGNS NBP Sys/Meghan/Mean (mmHg): 114 : 65 : 77 Pulse: 90 Datetime: 08/06/2025 08:30 Stage of : Datetime: 08/06/2025 07:54 SpO2 (%): 99 Datetime: 08/06/2025 06:32 Temperature (C): 36.8 Temperature Route: Oral Datetime: 08/06/2025 05:50 LaborFlag: Labor Datetime: 08/06/2025 05:45 COMMUNICATION Communication: Provider at Bedside Communication Comments: Dr Wendell at bedside Datetime: 08/06/2025 05:43 Comments: indertermanite Datetime: 08/06/2025 05:41 Provider Notified (Name): RT Josiane Notification Reason: Status Update; Status; Labor Status Datetime: 08/06/2025 05:38 Provider Reviewed Strip: No Datetime: 08/06/2025 05:30 Frequency (min): 2-3 Duration (sec): 60-120 Contraction Comments: pushing Datetime: 08/06/2025 05:27 Pushing Position: Pushing Lithotomy Pushing Progress: with Pushing Datetime: 08/06/2025 05:15 Patient Care Comments: squat bar Datetime: 08/06/2025 04:59 UTERINE ACTIVITY Monitor Mode: External Quality: Strong Pattern: Normal: <= 5 Contractions in 10 Minutes Resting Tone (Palpate): Relaxed FHR Baseline Rate : 115 Category: Category II Datetime: 08/06/2025 04:51 Patient Position/Activity: Left Tilt; Semi-Fowlers Datetime: 08/06/2025 04:46 Hygiene: Yelitza Care; Peripad Changed Datetime: 08/06/2025 04:39 VAGINAL EXAM Dilatation (cm): 10.0 Station: 0 Exam by: Fide Kimmie Vaginal Bleeding: Normal Show Datetime: 08/06/2025 04:36 Monitor Interventions for FHR: Ultrasound Adjusted Datetime: 08/06/2025 04:31 ASSESSMENT A Monitor Mode: External US Variability: Moderate 6-25 bpm Accelerations: 15X15 Decelerations: Early Datetime: 08/06/2025 04:08 Pain Coping: Breathing Through Contractions Comfort Measures: Breathing/Relaxation; Coaching; Hot/Cold Pack STAGE 2 Pushing: Involuntary Pushing Datetime: 08/06/2025 03:21 TEACHING Instructional Method: Verbal Pain Management: IV Narcotics; Epidural; PRN Medications; Pain Scale/Goals Datetime: 08/06/2025 03:07 Pain Assessment Comments: Pt in tub Datetime: 08/06/2025 03:00 Monitor Interventions for UA: [place] Adjusted Datetime: 08/06/2025 02:52 Strip Reviewed by: RNs Tripp, Kayden, Spear Datetime: 08/06/2025 02:42 PAIN Pain Presence: Intermittent Pain Type: Contraction Pain Location: Abdomen; Back Pain Relief Measures: Comfort Measures Effacement (%): 75 Membrane Status: Ruptured Membranes Rupture Method: Spontaneous Amniotic Fluid Color: Clear Amniotic Fluid Amount: Large Amniotic Fluid Odor: None Cervix, Consistency: Soft Cervix, Position: Midposition Membrane Comments: pink tinge. pt SROM 08/06/25 @0200 MATERNAL ASSESSMENT Level of Consciousness: Alert DTR's/Clonus: No Clonus Headache: Denies Nausea/Vomiting: Denies RUQ Epigastric Pain: Denies PATIENT CARE Procedures: Sterile Vag Exam ANESTHESIA Anesthesia Plans: None Plan of Care: Plan of Care Discussed Unit Routine: [place] to Room; Bed; Monitoring; Safety/Fall Risk Prevention; Bathroom Privileges; Medications Labor/Induction: Labor Stages; Activity Medications: Pitocin Related: Hydration; Activity and Rest Datetime: 08/06/2025 02:40 Membranes Ruptured Date/Time: 08/06/2025 02:00
== END 2025-08-07 11:44 | disposition home or self-care (01) | DRG 807 ==
LOC: WFO 02:34 → FBP 02:35
PROVIDERS: ADMIT Nurse Practitioner Obstetrics & Gynecology; ATTEND Nurse Practitioner Obstetrics & Gynecology